=== PATIENT | male | born 1965 | race Caucasian/White ===

== ENCOUNTER 2020-05-28 07:47 | Emergency (ER) | payer BC, SELFPAY ==
--- NOTE | ~2020-05-28 | XR_ITS ---
XR foot RT min 3V DATE: 05/28/2020 08:10 INDICATION: Stubbed toe on abdomen TECHNIQUE: 4 views of right foot COMPARISON: None FINDINGS: Plantar calcaneal enthesopathy without associated periostitis or erosive change. There is a transverse fracture through the shaft of the proximal phalanx of the fifth digit with mini mal lateral displacement. There is a fracture through the shaft of the proximal phalanx of the fourth digit with minimal medial displacement. No other fracture or dislocation. IMPRESSION: Fracture of the shafts of the proximal phalanges of the fourth and fifth toes with minima l displacement Reviewed, dictated and finalized at location A. [employer] IMPRESSION: Fracture of the shafts of the proximal phalanges of the fourth and fifth toes with minimal displacement
[2020-05-28 07:52] VITALS: BP 147/94; PULSE 79; RESP 16; TEMP 36.2; O2SAT 100
--- NOTE | 2020-05-28 08:03 | ED.LOWEXIN ---
HPI - Extremity Injury (Lower) General Chief Complaint: Extremity Injury, Lower Stated Complaint: right foot pain Time Seen by Provider: 05/28/20 07:53 History of Present Illness HPI Narrative: Pain in the right fourth and fifth toes since striking them on an ottoman last night while walking in the dark. He does note a mild deformity to the fourth toe. No numbness or wound. Related Data Home Medications Medication Instructions Recorded Confirmed rosuvastatin 10 mg tablet 10 mg PO DAILY 04/15/20 finasteride 5 mg tablet 5 mg PO DAILY 04/20/20 losartan 50 mg tablet 50 mg PO DAILY 04/20/20 Allergies Allergy/AdvReac Type Severity Reaction Status Date / Time DARVOCET Allergy Mild Vomiting Uncoded 05/28/20 07:57 HYDROCODONE BIT Allergy Mild ITCHING Uncoded 05/28/20 07:57 Review of Systems Review of Systems: All systems reviewed & are unremarkable except as noted in HPI and below PMFSH Past Medical History Medical History BPH (benign prostatic hyperplasia) HTN (hypertension) Social History Social History Smoking status: Never smoker Alcohol intake: current Substance use: never Gender identity (if verbalized by the patient): Male Spiritual care concerns: No Exam Const: General: healthy appearing, no acute distress and alert Orientation/consciousness: patient oriented x3 HENMT: Head: normal to inspection Resp: Effort & Inspection: normal respiratory effort Cardio: Other: 2+ DP Skin: Wounds: no wounds Neuro: General: patient oriented x3, moves all extremities and no focal motor deficits Speech: normal speech Other: distal sensation intact in injured digits Extrem: Other: Bruising to right fourth and fifth toes Course Vital Signs Vital signs: Vital Signs Temperature 36.2 C L 05/28/20 07:52 Pulse Rate 79 05/28/20 07:52 Respiratory Rate 16 05/28/20 07:52 Blood Pressure 147/94 H 05/28/20 07:52 Pulse Oximetry 100 05/28/20 07:52 Temperature 36.2 C L 05/28/20 07:52 Pulse Rate 79 05/28/20 07:52 Respiratory Rate 16 05/28/20 07:52 Blood Pressure 147/94 H 05/28/20 07:52 Pulse Oximetry 100 05/28/20 07:52 MDM - Extremity Injury (Lower) MDM Narrative Medical decision making narrative: 4th toe is mildly displaced. I do not believe that reduction would be successful given the fracture. Differential Diagnosis Differential diagnosis: Likely fracture of toe Medical Records Attestation: I reviewed the patient's medical records. Discharge Plan Discharge Clinical Impression: Fracture of toe of right foot Qualifiers: Encounter type: initial encounter Toe: lesser toe Fracture type: closed Phalanx: proximal Fracture alignment: displaced Qualified Code(s): S92.511A - Displaced fracture of proximal phalanx of right lesser toe(s), initial encounter for closed fracture Patient Disposition: Home, Self-Care Condition: Stable Instructions: Toe Fracture (ED) Prescriptions: No Action rosuvastatin [Crestor] 10 mg tablet 10 mg PO DAILY RF: 0 losartan 50 mg tablet 50 mg PO DAILY RF: 0 finasteride 5 mg tablet 5 mg PO DAILY RF: 0 pantoprazole 40 mg tablet,delayed release (DR/EC) See Rx Instructions .ROUTE .COMPLEX Qty: 90 RF: 3 Follow-up/Referrals: Shayla,Jose Daniel Garcia MD [Primary Care Provider] - Stand Alone Forms: Work/School Release IP
--- NOTE | 2020-05-28 08:11 | PC.NURSE ---
xray's being completed at bedside.
== END 2020-05-28 09:31 | disposition home or self-care (01) ==
PROVIDERS: Emergency Provider Emergency Medicine; PCP Family Medicine
DX: S92.511A Displaced fracture of proximal phalanx of right lesser toe(s), initial encounter for closed fracture (principal); N40.0 Benign prostatic hyperplasia without lower urinary tract symptoms; I10 Essential (primary) hypertension; W22.03XA Walked into furniture, initial encounter
CPT/HCPCS: 73630; 99284

== ENCOUNTER → 2020-08-08 07:57 | Outpatient (REF) | payer BC, SELFPAY | LOC: ANHLAB 07:57 | PROVIDERS: PCP Internal Medicine; Visit Provider Nurse Practitioner | DX: C44.311 Basal cell carcinoma of skin of nose (principal) | CPT/HCPCS: 88305; 88331 ==